=== PATIENT | female | born 1980 | race Caucasian/White ===

== ENCOUNTER 2022-07-12 08:31 | Observation (INO) | payer MEDICARE, MEDICAID ==
[2022-07-12 09:05] LABS: #Basophils 0.1 thou/uL (0.0-0.2); #Eosinphils 0.5 thou/uL (0.0-0.7); #Lymphocytes 2.6 thou/uL (1.20-3.40); #Monocytes 1.5 thou/uL (0.11-0.59); %Basophils 0.4 % (0.0-1.0); %Eosinophils 2.6 % (0.0-10.0); %Lymphocytes 13.8 % (21.0-51.0); %Monocytes 8.2 % (0.0-10.0); %Neutrophils 75.1 % (42.0-75.0); Hemoglobin 15.4 g/dL (12.0-16.0); Mean Corpuscular HGB CONC 32.7 g/dL (32.0-36.0); Mean Corpuscular Hemoglobin 31.9 pg (27.0-31.0); Mean Corpuscular Volume 97.4 fl (78.0-98.0); Mean Platelet Volume 9.6 fL (7.4-10.4); Platelet Count 243 10x3/uL (130-400); RBC Distribution Width 12.1 % (11.5-14.5); Red Blood Cell (RBC) Count 4.84 mill/uL (4.20-5.40); White Blood Cell (WBC) Count 18.7 10x3/uL (4.8-10.8)
[2022-07-12] MEDS ORDERED: Magnesium 2 GM/50 ML BAG (IN WATER) ONE (09:07)
[2022-07-12] MEDS ORDERED: Dexamethasone 10 MG/ML VIAL ONE (09:07)
[2022-07-12 09:08] LABS: BHCG - Serum Negative (NEGATIVE); Pregs Control Background? CLEAR/WHITE (CLR/WHITE); Pregs Control Bar Appear? YES (CONTROL BAR)
[2022-07-12 09:27] LABS: ALT (SGPT) 12 U/L (8-55); AST (SGOT) 13 U/L (5-34); Albumin 3.9 g/dL (3.5-5.0); Alkaline Phosphatase 52 U/L (40-110); Anion Gap 14 mmol/L (10-20); BUN (Urea Nitrogen) 12 mg/dL (7.0-18.7); Bilirubin, Total 0.3 mg/dL (0.2-1.2); Calc. Creatinine Clearance 0 mL/min (70-130); Calcium 8.8 mg/dL (7.8-10.44); Carbon Dioxide 21 mmol/L (22-29); Chloride 107 mmol/L (98-107); Estimated GFR 106; Glucose 141 mg/dL (70-105); Potassium 3.6 mmol/L (3.5-5.1); Protein, Total 6.9 g/dL (6.0-8.3); Sodium 138 mmol/L (136-145)
[2022-07-12] MEDS ORDERED: Albuterol Sulfate 2.5 mg/3 ml Neb ONE ×2 (09:54→14:09)
[2022-07-12] MEDS ORDERED: Ipratropium Bromide 2.5 ml Neb ONE ×2 (09:55→14:09)
[2022-07-12] MEDS ORDERED: Iopamidol-370 76% 500 ML 1 ML ONE (10:41)
[2022-07-12] MEDS ORDERED: Cefepime 2 GM VIAL ONE (10:45)
[2022-07-12 11:40] LABS: Bilirubin Negative (Negative); Blood, Urine Negative (Negative); Clarity Clear (Clear); Glucose, Urine (Dipstick) Normal (Negative); Ketone, Urine Negative (Negative); Leukocyte Negative Leu/uL (Negative); Nitrite Negative (Negative); Protein, Urine (Dipstick) Negative (Neg-Trace); Specific Gravity, Urine 1.042 (1.002-1.036); Urobilinogen Normal mg/dL (Less than 2); pH, Urine 6.5 (5.0-9.0)
[2022-07-12 12:18] LABS: SARS-CoV-2 NAA Rapid Test Not Detected (NotDetected)
[2022-07-12] MEDS ORDERED: VANCOMYCIN 2 GRAM/500 ML BAG 2 GM in Premix Bag 1 BAG IVPB SCH (12:30)
[2022-07-12 12:45] LABS: Lactic Acid 3.5 mmol/L (0.5-2.2)
[2022-07-12] MEDS ORDERED: guaiFENesin 200 MG TAB PO PRN (13:44)
[2022-07-12] MEDS ORDERED: Senokot S 8.6-50 MG TAB PO PRN (13:45)
[2022-07-12] MEDS ORDERED: Ondansetron PF 4 MG/2 ML Vial IVP PRN (13:45)
[2022-07-12] MEDS ORDERED: Ondansetron ODT 4 MG TAB PO PRN (13:45)
[2022-07-12 18:55] LABS: Actual Bicarbonate (HCO3a) 18.5 mEq/L (22-28); Base Excess (BEa) -4.1 mEq/L (-2.0 to +3.0); CO2 Tension 28.1 mmHg (35.0-45.0); Calcium, Ionized (arterial) 1.15 mmol/L (1.12-1.30); Carboxyhemoglobin (COHb) 0.4 gm% (0.0-3.0); Hemoglobin (Hb) 15.4 g/dL (12.0-16.0); O2 Tension (PaO2), arterial 73.3 mmHg (80.0-100.0); Potassium - ABG Lab 3.98 mmol/L (3.70-5.30); pH, Arterial 7.44 (7.35-7.45)
[2022-07-12 18:56] LABS: Puncture Site RRA
[2022-07-12 18:57] LABS: ALV-art Gradient 119.735 mmHg (0-20)
[2022-07-12 19:18] VITALS: BMI 31.9
[2022-07-12] MEDS: Mometasone/Formoterol 60 PUFF AER INH SCH (19:32)
[2022-07-12] MEDS ORDERED: Enoxaparin Sodium 40 MG/0.4 ML SYRINGE SC SCH (21:00)
[2022-07-12] MEDS: Famotidine 20 MG TAB PO SCH (21:04)
[2022-07-12] MEDS: Montelukast Sodium 10 mg Tablet PO SCH (21:04)
[2022-07-12] MEDS: Doxycycline 100 MG CAP PO SCH (21:04)
[2022-07-12] MEDS: methylPREDNISolone Sod Succ/PF 125 MG/2 ML VIAL IVP SCH (21:05)
[2022-07-12] MEDS: Bupropion 100 MG SR TAB PO SCH (21:06)
[2022-07-13] MEDS: methylPREDNISolone Sod Succ/PF 125 MG/2 ML VIAL IVP SCH ×2 (01:07→06:18)
[2022-07-13 07:53] LABS: #Lymphocytes 1.4 thou/uL (1.20-3.40); #Monocytes 0.4 thou/uL (0.11-0.59); #Neutrophils 15.8 thou/uL (1.40-6.50); %Basophils 0.1 % (0.0-1.0); %Eosinophils 0.1 % (0.0-10.0); %Lymphocytes 8.1 % (21.0-51.0); %Monocytes 2.1 % (0.0-10.0); %Neutrophils 89.6 % (42.0-75.0); Hemoglobin 15.2 g/dL (12.0-16.0); Mean Corpuscular HGB CONC 33.2 g/dL (32.0-36.0); Mean Corpuscular Hemoglobin 32.4 pg (27.0-31.0); Mean Corpuscular Volume 97.6 fl (78.0-98.0); Mean Platelet Volume 9.6 fL (7.4-10.4); Platelet Count 242 10x3/uL (130-400); RBC Distribution Width 12.4 % (11.5-14.5); Red Blood Cell (RBC) Count 4.68 mill/uL (4.20-5.40); White Blood Cell (WBC) Count 17.7 10x3/uL (4.8-10.8)
[2022-07-13] MEDS ORDERED: ALPRAZolam 0.25 MG TAB PO PRN (08:06)
[2022-07-13] MEDS ORDERED: buPROPion HCl 100 MG TAB PO SCH (09:00)
[2022-07-13 09:01] LABS: Chloride 112 mmol/L (98-107); Potassium 4.5 mmol/L (3.5-5.1); Sodium 137 mmol/L (136-145)
[2022-07-13 09:02] LABS: Calcium 8.9 mg/dL (7.8-10.44); Glucose 122 mg/dL (70-105)
[2022-07-13 09:03] LABS: Anion Gap 17 mmol/L (10-20); Carbon Dioxide 13 mmol/L (22-29)
[2022-07-13 09:05] LABS: Calc. Creatinine Clearance 164 mL/min (70-130); Estimated GFR 114
[2022-07-13 09:06] LABS: BUN (Urea Nitrogen) 9 mg/dL (7.0-18.7)
[2022-07-13] MEDS: Mometasone/Formoterol 60 PUFF AER INH SCH ×2 (10:04→18:33)
[2022-07-13] MEDS: Bupropion 100 MG SR TAB PO SCH ×2 (10:15→21:48)
[2022-07-13] MEDS: Famotidine 20 MG TAB PO SCH ×2 (10:16→21:47)
[2022-07-13] MEDS: Doxycycline 100 MG CAP PO SCH ×2 (10:16→21:48)
[2022-07-13] MEDS: Acetaminophen 325 MG TAB PO PRN ×2 (10:37→21:48)
[2022-07-13] MEDS ORDERED: Diazepam 5 MG TAB PO PRN (10:48)
[2022-07-13] MEDS ORDERED: Loratadine 10 MG TAB PO SCH (11:00)
[2022-07-13] MEDS: methylPREDNISolone Sod Succ 40 MG VIAL IVP SCH ×2 (13:19→21:48)
[2022-07-13] MEDS ORDERED: Electrolyte Replacement Protocol 1 EACH FS SCH (18:00)
[2022-07-13] MEDS: Montelukast Sodium 10 mg Tablet PO SCH (21:48)
[2022-07-13] MEDS: guaiFENesin ER 600 MG TAB PO SCH (21:48)
[2022-07-14] MEDS: methylPREDNISolone Sod Succ 40 MG VIAL IVP SCH (05:21)
[2022-07-14 06:17] LABS: #Lymphocytes 2.2 thou/uL (1.20-3.40); #Monocytes 1.8 thou/uL (0.11-0.59); #Neutrophils 15.4 thou/uL (1.40-6.50); %Eosinophils 0.1 % (0.0-10.0); %Lymphocytes 11.5 % (21.0-51.0); %Monocytes 9.1 % (0.0-10.0); %Neutrophils 79.3 % (42.0-75.0); Hemoglobin 13.5 g/dL (12.0-16.0); Mean Corpuscular HGB CONC 32.9 g/dL (32.0-36.0); Mean Corpuscular Hemoglobin 32.1 pg (27.0-31.0); Mean Corpuscular Volume 97.4 fl (78.0-98.0); Mean Platelet Volume 10.1 fL (7.4-10.4); Platelet Count 262 10x3/uL (130-400); RBC Distribution Width 12.4 % (11.5-14.5); Red Blood Cell (RBC) Count 4.22 mill/uL (4.20-5.40); White Blood Cell (WBC) Count 19.4 10x3/uL (4.8-10.8)
[2022-07-14 06:18] LABS: Anion Gap 11 mmol/L (10-20); BUN (Urea Nitrogen) 22 mg/dL (7.0-18.7); Calc. Creatinine Clearance 154 mL/min (70-130); Calcium 8.6 mg/dL (7.8-10.44); Carbon Dioxide 21 mmol/L (22-29); Chloride 110 mmol/L (98-107); Estimated GFR 112; Glucose 106 mg/dL (70-105); Magnesium 2.1 mg/dL (1.6-2.6); Potassium 4.2 mmol/L (3.5-5.1); Sodium 138 mmol/L (136-145)
[2022-07-14] MEDS: Mometasone/Formoterol 60 PUFF AER INH SCH (06:55)
[2022-07-14 08:11] VITALS: BP 95/51; TEMP 98
[2022-07-14] MEDS ORDERED: predniSONE 20 MG TAB PO SCH (09:00)
[2022-07-14] MEDS: Bupropion 100 MG SR TAB PO SCH (09:15)
[2022-07-14] MEDS: Famotidine 20 MG TAB PO SCH (09:15)
[2022-07-14] MEDS: guaiFENesin ER 600 MG TAB PO SCH (09:15)
[2022-07-14] MEDS: Doxycycline 100 MG CAP PO SCH (09:15)
== END 2022-07-14 10:20 | disposition home or self-care (01) ==
LOC: ERS 08:31 → ERHOLD 13:05 → 2SW 18:13
PROVIDERS: ADMIT Internal Medicine; ATTEND Internal Medicine
DX: J45.901 Unspecified asthma with (acute) exacerbation (principal); J45.902 Unspecified asthma with status asthmaticus; J96.01 Acute respiratory failure with hypoxia; D72.829 Elevated white blood cell count, unspecified; E87.20 Acidosis, unspecified; R73.9 Hyperglycemia, unspecified; I10 Essential (primary) hypertension; E86.0 Dehydration; E66.9 Obesity, unspecified; Z68.32 Body mass index [BMI] 32.0-32.9, adult; Z79.899 Other long term (current) drug therapy; Z20.822 Contact with and (suspected) exposure to COVID-19
CPT/HCPCS: 0240U; 36600; 71045; 71275; 80048 ×2; 80053; 81003; 82805; 83605 ×2; 83735; 84484; 84703; 85025 ×3; 85379; 87040; 93005; 94640 ×7; 96365; 96366; 96367; 96375; 99285; J3370; 36415; 96372; 96376; G0378; J0692; J1100; J1650; J2920; J2930; J3475; J7512; J7611; J7620; Q0162; Q9967